=== PATIENT | female | born 1995 | race Two or more races ===

== ENCOUNTER 2019-05-25 08:23 | Inpatient (IN) | payer OTHER ==
[~2019-05-25] VITALS: Ht 149.9 cm; Wt 142.0 kg
[2019-05-26] MEDS ORDERED: PRENATABS RX T1 EACH PO (09:53)
== END 2019-05-28 12:08 | disposition home or self-care (01) | DRG 807 ==
LOC: OB/GYN 12:15 → LDR 05-26 09:42 → OB/GYN 05-26 12:15
PROVIDERS: ADMIT Obstetrics & Gynecology
PROC: 10E0XZZ Delivery of Products of Conception, External Approach (ICD-10-PCS; principal; 2019-05-26)
PROC: 0HQ9XZZ Repair Perineum Skin, External Approach (ICD-10-PCS; 2019-05-26)
PROC: 4A0HXFZ Measurement of Products of Conception, Cardiac Rhythm, External Approach (ICD-10-PCS; 2019-05-26)
DX: O70.0 First degree perineal laceration during delivery (principal); Z37.0 Single live birth; Z3A.40 40 weeks gestation of pregnancy